=== PATIENT | male | born 1975 | race Caucasian/White ===

== ENCOUNTER 2017-01-25 17:55 | Emergency (ER) | payer SELFPAY ==
--- NOTE | 2017-01-28 12:41 | ER ---
ADMIT: 01/25/2017 RM/LOC: ER [facility] MR#: [id number] [address] [facility] [address] [place] [id number] [address] [place] [address] Emergency Room Report SEX: M AGE: 42 : 1975 CORRECTED: 01/26/201733 NJV DATE: 01/25/2017 HISTORY OF PRESENT ILLNESS: The patient is a 42-year-old, who is from [place], presents to the emergency room with what he considers no bowel movement for 4 to 5 days. He is having some cramping. He uses suppository this morning without any results. He said he also has had normal saline, enema, and have not been able to go to the bathroom. He takes herbal supplements and iodine. PHYSICAL EXAMINATION: His blood pressure is 167/84, pulse 77, respirations 18, temp is 98.1, and O2 sats 93%. He has had ashanti. He is a smoker and drinks alcohol rarely. Decreased bowel sounds. The rest of the examination is within normal limits. He denies any back, CVA tenderness. KUB does show a stool present. We went ahead and gave him a mag citrate bottle and he is awaiting to be able to go to the bathroom. CLINICAL IMPRESSION: Constipation, acute. AUNG Self / Galdino Lowe MD / modl JOB #: [id number] CC: Galdino Lowe MD, Attending Physician Jam Persaud MD, Family Physician CORRECTED: 01/26/201733 NJV
== END 2017-01-25 22:40 | disposition home or self-care (01) ==
LOC: ER 17:55
DX: K59.00 Constipation, unspecified (principal); F17.210 Nicotine dependence, cigarettes, uncomplicated; Z90.49 Acquired absence of other specified parts of digestive tract; Z98.890 Other specified postprocedural states; Z79.899 Other long term (current) drug therapy